=== PATIENT | male | born 1965 | race African-American/Black ===

== ENCOUNTER → 2017-01-19 | Outpatient (CLI) | payer OTHER ==
[~2017-01-19] MED LIST: ASPEC81 PO; GLUC1CAP35 PO; LPR25 PO; LSN20 PO; MULT-506 PO
[2017-01-19 10:16] LABS: ALT/SGPT 33 U/L (12-78); BLOOD UREA NITROGEN 14 mg/dl (7-18); BUN/CREATININE RATIO 12.4 (10-20); CALCIUM 9.5 mg/dl (8.5-10.1); CARBON DIOXIDE 29 mmol/L (21-32); CHLORIDE 105 mmol/L (98-107); CHOLESTEROL 220 mg/dl (0-200); GLUCOSE 97 mg/dl (70-99); POTASSIUM 4.3 mmol/L (3.5-5.1); SODIUM 140 mmol/L (136-145)
[2017-01-19 10:21] LABS: ALKALINE PHOSPHATASE 74 U/L (45-117); AST/SGOT 30 U/L (15-37); HDL CHOLESTEROL 55 mg/dl; LDL CHOLESTEROL CALCULATED 111 mg/dl; PROSTATE SPECIFIC ANTIGEN 0.426 ng/ml (0.000-4.000); TRIGLYCERIDES 271 mg/dl (0-150); VERY LOW DENSITY LIPOPROT CALC 54 mg/dl
== END | disposition home or self-care (01) ==
LOC: C.LAB1850 09:10
PROVIDERS: ATTEND Internal Medicine
DX: E78.5 Hyperlipidemia, unspecified (principal); E55.9 Vitamin D deficiency, unspecified; Z12.5 Encounter for screening for malignant neoplasm of prostate

== ENCOUNTER → 2017-07-26 | Day surgery (SDC) | payer OTHER ==
[~2017-07-26] VITALS: Ht 188 cm; Wt 106.8 kg
[~2017-07-26] MED LIST changes: +LIDOCAINE HCL 2% 2 ML VIAL (20MG/ML) ONE; -LPR25 PO; -LSN20 PO; +PROPOFOL IV EMULSION 10 MG/ML 20 ML VIAL IV ONE; +SODIUM CHLORIDE 0.9% 500ML 500 ML IV ONE
[2017-07-26 12:24] VITALS: Ht 188 cm; Wt 106.8 kg
--- NOTE | 2017-07-26 12:55 | Endo History and Physical ---
History & Physical Date of Service: Jul 26, 2017. Chief Complaint: screening Referring Physician: Dr. Moe History of Present Illness 52 yo male who presents for screening colonoscopy. Past Medical History Hypertension Past Surgical History Hx Cardiac Surgery: No Hx Internal Defibrillator: No Hx Pacemaker: No Hx Abdominal Surgery: Yes (APPY) Hx of Implantable Prosthesis: No Hx Post-Op Nausea and Vomiting: No Hx Cancer Surgery: No Hx Thoracic Surgery: No Hx Orthopedic: Yes (LEFT FIFTH DIGIT SX) Hx Urinary Tract Surgery: No Family History None Social History Smoking Status: Never Smoker Hx Substance Use: No Hx Alcohol Use: No Allergies Coded Allergies: No Known Allergies (Unverified , 07/26/17) Current Medications Reported Home Medications Medications Dose Route/Sig Max Daily Dose Days Date Category Glucosamine Chondroitin (Fxtuxyobary-Uoognhrepbo-Szt C-) 1 Cap Cap 1 Cap PO QAM 07/11/17 Reported Multivitamin (Multivitamins) Tab 1 Tab PO QAM 07/11/17 Reported Aspirin EC Low Dose (Aspirin) 81 Mg Ectab 81 Mg PO QAM 30 08/09/15 Rx Vital Signs Weight (Kilograms): 106.82 Height (Feet): 6 Height (Inches): 2 Date Time Temp Pulse Resp B/P (MAP) Pulse Ox O2 Delivery O2 Flow Rate FiO2 07/26/17 12:42 36.9 54 18 139/83 (101) 98 Room Air Physical Exam General Appearance: WD/WN, no apparent distress Respiratory/Chest: Auscultation: breath sounds normal Cardiovascular: Heart Auscultation: RRR Abdomen: Bowel Sounds: normal Inspection & Palpation: soft, non-distended, no tenderness, guarding & rebound Assessment and Plan Assessment: 52 yo male who presents for screening colonoscopy. Plan: Proceed with colonoscopy.
--- NOTE | 2017-07-26 13:33 | Discharge Instructions ---
Endoscopy Patient Instructions Date / Procedure(s) Performed Jul 26, 2017. Colonoscopy Allergy Information Coded Allergies: No Known Allergies (Unverified , 07/26/17) Discharge Date / Findings Jul 26, 2017. Normal colonoscopy with Fair bowel prep Medication Instructions OK to resume all medications today as prescribed Reported Home Medications Medications Dose Route/Sig Max Daily Dose Days Date Category Glucosamine Chondroitin (Uqguzcyrswf-Xtzdflidhre-Nup C-) 1 Cap Cap 1 Cap PO QAM 07/11/17 Reported Multivitamin (Multivitamins) Tab 1 Tab PO QAM 07/11/17 Reported Aspirin EC Low Dose (Aspirin) 81 Mg Ectab 81 Mg PO QAM 30 08/09/15 Rx Provider Instructions Activity Restrictions - No exercising or heavy lifting for 24 hours. - Do not drink alcohol the day of the procedure. - Do not drive a car or operate machinery until the day after the procedure. - Do not make any important decisions or sign important papers in 24 hours after the procedure. Following Day: - Return to full activity which may include returning to work/school. Diet Start your diet with liquids and light foods (jello, soup, juice, toast). Then eat your usual diet if not nauseated. Treatment For Common After Affects For mild abdominal pain, bloating, or excessive gas: - Rest - Eat lightly - Lie on right side Follow-Up Information Follow-up with Dr. Moe as scheduled Anesthesia Information What You Should Know You have had a procedure that required some medicine to reduce anxiety and discomfort. This treatment is called moderate sedation. After receiving the treatment, you may be sleepy, but you will be able to breathe on your own. The effects of the treatment may last for several hours. Follow these instructions along with Activity/Diet recommendations noted above: * Do NOT do anything where dizziness or clumsiness would be dangerous. * Rest quietly at home today, then you can be up and about tomorrow. * Have a responsible person stay with you the rest of today. * You may have had an I.V. today. If so, you may take the dressing off later today. Recommendations Call your doctor if: * Trouble breathing * Continuous vomiting for more than 24 hours * Temperature above 101 degrees * Severe abdominal pain or bloating * Pain not relieved by pain medicine ordered * There is increased drainage or redness from any incision * A large amount of rectal bleeding greater than 2-3 tablespoons. (If you had a polyp/s removed or have hemorrhoids, a small amount of blood - from the rectum is to be expected.) * You have any unanswered questions or concerns. IN THE EVENT OF A SERIOUS EMERGENCY, GO TO THE NEAREST EMERGENCY ROOM Your discharge instructions were prepared by provider Carlos Collazo. Patient Instructions Signature Page Gilson Larry Patient (or Guardian) Signature/Date: I have read and understand the instructions given to me by my caregivers. Caregiver/RN/Doctor Signature/Date: The above-named patient and/or guardian has received patient instructions on this date. + Original Patient Signature Page (only) stays with chart. Please make copy for patient.
--- NOTE | 2017-07-26 13:39 | Anesthesiology Progress Note ---
Anesthesia Post Op Note Date & Time Jul 26, 2017 at 13:39 Vital Signs Pain Intensity: 0 Vital Signs Past 12 Hours Date Time Temp Pulse Resp B/P (MAP) Pulse Ox O2 Delivery O2 Flow Rate FiO2 07/26/17 12:42 36.9 54 18 139/83 (101) 98 Room Air Notes Mental Status: alert / awake / arousable, participated in evaluation Pt Amnestic to Procedure: Yes Nausea / Vomiting: adequately controlled Pain: adequately controlled Airway Patency, RR, SpO2: stable & adequate BP & HR: stable & adequate Hydration State: stable & adequate Anesthetic Complications: no major complications apparent
--- NOTE | 2017-07-26 13:42 | GI REPORT ---
Procedure Date: 07/26/2017 1:02 PM THIS REPORT HAS BEEN AMENDED Addendum Number: 1 Addendum Date: 08/08/2017 12:40:14 PM No specimens were collected during this exam, and therefore, no pathology is pending. Repeat colonoscopy in 10 years. Procedure: Colonoscopy Indications: Screening for colorectal malignant neoplasm Medicines: Monitored Anesthesia Care Complications: No immediate complications. Estimated Blood Loss: Estimated blood loss: none. Procedure: Pre-Anesthesia Assessment: - Prior to the procedure, a History and Physical was performed, and patient medications and allergies were reviewed. The patient's tolerance of previous anesthesia was also reviewed. The risks and benefits of the procedure and the sedation options and risks were discussed with the patient. All questions were answered, and informed consent was obtained. Prior Anticoagulants: The patient has taken aspirin, last dose was 1 day prior to procedure. ASA Grade Assessment: II - A patient with mild systemic disease. After reviewing the risks and benefits, the patient was deemed in satisfactory condition to undergo the procedure. After I obtained informed consent, the scope was passed under direct vision. Throughout the procedure, the patient's blood pressure, pulse, and oxygen saturations were monitored continuously. The Scope was introduced through the anus and advanced to the terminal ileum. The colonoscopy was performed without difficulty. The patient tolerated the procedure well. The quality of the bowel preparation was good. The terminal ileum, ileocecal valve, appendiceal orifice, and rectum were photographed. Findings: The colon (entire examined portion) appeared normal. Impression: - The entire examined colon is normal. - No specimens collected. Recommendation: - Resume previous diet. - Continue present medications. - Repeat colonoscopy for surveillance based on pathology results. - Return to primary care physician as previously scheduled. Carlos Perdomo Zay, DO 07/26/2017 1:42:14 PM This report has been signed electronically. Note Initiated On: 07/26/2017 1:02 PM I attest to the content of the Intraoperative Record and orders documented therein, exceptions below Carlos Perdomo Zay, DO 08/08/2017 12:41:01 PM This report has been signed electronically.
[2017-07-26 14:07] VITALS: BP 145/90; PULSE 56; O2SAT 98
== END | disposition home or self-care (01) ==
LOC: C.GI 12:06
PROVIDERS: ATTEND Internal Medicine
DX: Z12.11 Encounter for screening for malignant neoplasm of colon (principal); I10 Essential (primary) hypertension